=== PATIENT | male | born 1950 | race African-American/Black ===

== ENCOUNTER 2018-06-23 06:08 | Day surgery (SDC) | payer OTHER ==
[~2018-06-23] VITALS: Ht 182.9 cm; Wt 90.7 kg
[~2018-06-23 06:08] MED LIST: BENA20TA10 PO; OMEP20CA10 PO; OXYC-102 PO; SOMA
[2018-06-23] MEDS ORDERED: SKIN ADHESIVE 0.7 GM EA TOP ONE (06:51)
[2018-06-23] MEDS ORDERED: LIDOCAINE HCL 1% 10 MG/ML 10ML VIAL ONE ×2 (06:52→10:00)
[2018-06-23] MEDS ORDERED: BUPIVACAINE HCL/PF 0.5% (5MG/ML) 10ML ONE (06:52)
[2018-06-23] MEDS ORDERED: BACITRACIN 50,000 UNITS/VIAL ONE (06:52)
[2018-06-23] MEDS ORDERED: NORMAL SALINE 0.9% 10 ML SYR ONE (06:52)
[2018-06-23] MEDS ORDERED: MIDAZOLAM HCL 2 MG/2 ML VIAL ONE ×3 (09:34→10:30)
[2018-06-23] MEDS ORDERED: CEFAZOLIN SODIUM 1000MG/VIAL ONE (09:35)
[2018-06-23] MEDS ORDERED: FENTANYL CITRATE/PF 50MCG/ML 2ML VIAL ONE ×3 (09:35→10:30)
[2018-06-23] MEDS ORDERED: HYDROMORPHONE HCL/PF 2MG/ML CPJ IV PRN (09:45)
[2018-06-23] MEDS ORDERED: LABETALOL 5MG/ML SYR 20 MG/4 ML SYRINGE IV PRN (09:45)
[2018-06-23] MEDS ORDERED: MEPERIDINE HCL/PF 25MG/ML CPJ IV PRN (09:45)
[2018-06-23] MEDS ORDERED: ONDANSETRON HCL 4MG/2ML INJ IV PRN (09:45)
[2018-06-23] MEDS ORDERED: HEPARIN SODIUM 1,000 UNIT/1ML VIAL IV ONE (10:12)
[2018-06-23] MEDS ORDERED: PROPOFOL 200MG/20ML VIAL IV ONE (10:19)
[2018-06-23 11:52] VITALS: BP 115/86
[2018-06-23] MEDS ORDERED: NEOSTIGMINE METHYLSULFATE 1MG/ML 10 ML VIAL ONE (11:55)
== END 2018-06-23 12:20 | disposition home or self-care (01) ==
LOC: OR 06:08
PROVIDERS: ATTEND Specialist
DX: C15.9 Malignant neoplasm of esophagus, unspecified (principal); C78.02 Secondary malignant neoplasm of left lung; C78.01 Secondary malignant neoplasm of right lung; F41.9 Anxiety disorder, unspecified; I10 Essential (primary) hypertension; E78.00 Pure hypercholesterolemia, unspecified; Z79.899 Other long term (current) drug therapy; Z98.890 Other specified postprocedural states; Z79.01 Long term (current) use of anticoagulants
CPT/HCPCS: 36415; 36561; 71045; 77001; 85610; 85730; 93005; A4216; C1788; G0168; J0690; J1170; J1644; J2250; J2710; J3010; J3490; J7120; J2704

== ENCOUNTER 2020-02-24 23:33 | Emergency (ER) | payer MEDICARE, OTHER ==
[~2020-02-24] VITALS: Ht 180.3 cm; Wt 82.0 kg
[~2020-02-24 23:33] MED LIST changes: -OMEP20CA10 PO; +OMEP20CA14 PO; -SOMA
[2020-02-24] MEDS ORDERED: ONDANSETRON HCL 4MG/2ML INJ IV STA (23:49)
[2020-02-24] MEDS ORDERED: SODIUM CHLORIDE 0.9% 1,000 ML IV ONE (23:49)
[2020-02-24] MEDS ORDERED: MORPHINE SULFATE 4 MG/ML CPJ (NOT FOR IM USE) IV STA (23:49)
[2020-02-25 00:05] VITALS: BP 113/75
== END 2020-02-25 01:51 | disposition left against medical advice (07) ==
LOC: ER 23:33
DX: R07.89 Other chest pain (principal); R09.02 Hypoxemia; I10 Essential (primary) hypertension; Z85.9 Personal history of malignant neoplasm, unspecified; Z79.899 Other long term (current) drug therapy; C15.8 Malignant neoplasm of overlapping sites of esophagus
CPT/HCPCS: 71045; 99283; J7030